=== PATIENT | female | born 1985 | race Caucasian/White ===

== ENCOUNTER 2018-01-05 14:45 | Outpatient (CLI) | payer OTHER, SELFPAY ==
[2017-12-12 15:55] VITALS: BP 137/79; BMI 37.3
[2018-01-05] MEDS: Betamethasone/Betamethasone 30 MG/5 ML Vial 12 MG IM (15:30)
[2018-01-05 16:09] LABS: Hematocrit 38.5 % (37-47); Hemoglobin 12.8 g/dl (12.0-15.0); Mean Corp Hgb Conc 33.2 g/gl (32-36); Mean Corpuscular Hgb 30.2 pg (27.0-32.0); Mean Corpuscular Volume 90.8 fL (81-99); Mean Platelet Vol. 10.3 fl (6.2-12.0); Platelet Count 258 K/mm3 (150-450); RBC Distribution Width CV 13.4 % (11.6-14.6); Red Blood Count 4.24 M/mm3 (4.2-5.4); Scan Indicated on CBC? Y/N NO
[2018-01-05 16:20] LABS: Prothrombin Time (Protime)PT. 12.9 SECONDS (11.7-14.9)
[2018-01-05 16:21] LABS: Partial Thromboplast Time 29.5 Seconds (24.1-36.2)
[2018-01-05 16:23] VITALS: BMI 38.5
[2018-01-05 16:38] LABS: AST(SGOT) 13 U/L (15-37); Alanine Aminotransfer ALT/SGPT 20 U/L (13-56); Creatinine, Serum 0.41 mg/dL (0.55-1.02); EST Glomerular Filtration Rate 193 mL/min (>60); Est Glom Filt Rate - Afr Amer 233 mL/min (>60); Estimated Creatinine Clearance 177.26 ml/min; Uric Acid 2.1 mg/dL (2.6-6.0)
[2018-01-05 16:47] LABS: Protein, Urine (Random) < 6.0 mg/dL (<11.9)
--- NOTE | 2018-01-08 20:15 | OB.TRI.NOTE ---
History of Present Illness Date of Service: 01/06/18 Was patient seen by the physician?: Yes Reason For Visit: R/O [facility] Date of Service: 01/06/18 History of Present Illness: 32 yo @ 27 weeks presents with viasual changes and black spots in the vision, and epigastric pain. she denies any vaginal bleeding or abnormal discharge, denies any headaches. she denies any history of preeclampsia Home Medications Medication Instructions Recorded 1 tab PO QDAY 11/14/17 vitamin,calcium,xmzmsmub-luqk-oeyna acid tablet Allergies tetracycline Allergy (Intermediate, Verified 12/12/17 15:55) throat swells - Pertinent Past Medical History Pertinent Past Medical History: anxiety and depression history of Physical Exam Vitals: Vital Signs BP 137/79 H 12/12/17 15:55 NST - FHR Rate Baby A Baseline: 145 Variability:: Moderate Accelerations:: 10 x 10 Decelerations:: None NST Reactive:: Yes, Appropriate for gestational age FHR Category:: Category I Uterine Activity:: no regular Impression/Plan rule out preeclampsia- visual changes. negative labs and normal bps. celestone given dc home
--- NOTE | 2018-01-08 20:19 | OB.TRI.HP_ITS ---
History of Present Illness Date of Service: 01/06/18 Was patient seen by the physician?: Yes Reason For Visit: R/O [facility] Date of Service: 01/06/18 History of Present Illness: 32 yo @ 27 weeks presents with viasual changes and black spots in the vision, and epigastric pain. she denies any vaginal bleeding or abnormal discharge, denies any headaches. she denies any history of preeclampsia Home Medications Medication Instructions Recorded 1 tab PO QDAY 11/14/17 vitamin,calcium,akycwpig-kswf-iclyk acid tablet Allergies tetracycline Allergy (Intermediate, Verified 12/12/17 15:55) throat swells - Pertinent Past Medical History Pertinent Past Medical History: anxiety and depression history of Physical Exam Vitals: Vital Signs BP 137/79 H 12/12/17 15:55 NST - FHR Rate Baby A Baseline: 145 Variability:: Moderate Accelerations:: 10 x 10 Decelerations:: None NST Reactive:: Yes, Appropriate for gestational age FHR Category:: Category I Uterine Activity:: no regular Impression/Plan rule out preeclampsia- visual changes. negative labs and normal bps. celestone given dc home
== END 2018-01-05 17:20 | disposition home or self-care (01) ==
LOC: WPOUT 14:58 → WP 15:00
PROVIDERS: Visit Provider Obstetrics & Gynecology
DX: O26.892 Other specified pregnancy related conditions, second trimester (principal); H53.8 Other visual disturbances; R10.13 Epigastric pain; Z3A.27 27 weeks gestation of pregnancy
CPT/HCPCS: 96372; 36415; 59050; 82565; 82570; 84156; 84450; 84460; 84550; 85027; 85610; 85730; 99218; A4216; G0378; J0702

== ENCOUNTER 2018-01-06 15:15 | Outpatient (CLI) | payer OTHER, SELFPAY ==
[2018-01-05 16:23] VITALS: BMI 38.5
[2018-01-06 15:41] VITALS: BMI 38.3
[2018-01-06] MEDS: Betamethasone/Betamethasone 30 MG/5 ML Vial 12 MG IM (15:57)
--- NOTE | 2018-01-08 20:19 | OB.TRI.NOTE ---
History of Present Illness Date of Service: 01/07/18 Was patient seen by the physician?: No Reason For Visit: CELESTONE SHOT Date of Service: 01/07/18 Home Medications Medication Instructions Recorded 1 tab PO QDAY 11/14/17 vitamin,calcium,mwtiudbl-txpt-mvisg acid tablet Allergies tetracycline Allergy (Intermediate, Verified 12/12/17 15:55) throat swells Impression/Plan celestone shot
== END 2018-01-06 15:47 | disposition home or self-care (01) ==
LOC: WPOUT 15:23 → WP 15:24
PROVIDERS: Visit Provider Obstetrics & Gynecology
DX: Z34.90 Encounter for supervision of normal pregnancy, unspecified, unspecified trimester (principal)
CPT/HCPCS: 96372; 99218; G0378; J0702

== ENCOUNTER → 2018-01-07 11:00 | Outpatient (CLI) | payer OTHER, SELFPAY ==
--- NOTE | 2018-01-07 11:06 | US_ITS ---
STUDY: SECOND AND THIRD TRIMESTER OBSTETRICAL ULTRASOUND REASON FOR EXAM: Female, 32 years old. Placenta previa LMP: TECHNIQUE: Transabdominal PRIOR ULTRASOUND: 11.12.17 FINDINGS: There is a single intrauterine fetus. The fetus is in a breech presentation. There is demonstrated cardiac activity with a heart rate of 140 bpm. There is a normal amniotic fluid volume. The largest amniotic fluid pocket measures 10.2 cm. The amniotic fluid index (ELY) is 14.9 cm. The placenta is posterior in location and is not low lying. The placenta is 2 cm from the cervical os. There are Grade 0 placental changes. The cervix measures 51 mm in length. The adnexal regions are not visualized. BIOMETRY: BPD: 66MM: 26 weeks, 4 days HC: 262MM: 28 weeks, 4 days AC: 227MM: 27 weeks, 1 days FL: 54MM: 28 weeks, 4 days CI: 70 FL/BPD: 82 FL/HC: FL/AC: 24 HC/AC: 1.15 age by current US: 27 weeks, 6 days. DOMINIK by current US: 5.6.18. Estimated weight: 1118 grams, +/- 163 grams, 50 %. Age by LMP: 27 weeks, 3 days. DOMINIK by LMP: 5.9.18. US/OB Limited With Biometrics IMPRESSION: The placenta is posterior in location and is not low lying. The placenta is 2 cm from the cervical os. There is a single live intrauterine with a heart rate of 140 bpm. age by current US: 27 weeks, 6 days. DOMINIK by current US: 5.6.18. Electronically Signed: Ubaldo Jon MD at 12:49 EST , Service support ,
== END ==
PROVIDERS: Visit Provider Obstetrics & Gynecology
DX: O44.00 Complete placenta previa NOS or without hemorrhage, unspecified trimester (principal); Z3A.00 Weeks of gestation of pregnancy not specified
CPT/HCPCS: 76816

== ENCOUNTER → 2018-01-10 15:58 | Outpatient (CLI) | payer OTHER, SELFPAY ==
[2018-01-10 17:40] LABS: Absolute Lymphocyte Count 2.78 X10^3/ul (0.83-4.51); Absolute Neutrophil Count 10.9 X10^3/uL (2.0-7.7); Basophil# 0.04 X10^3/uL; Basophil% 0.3 % (0-1); Eosinophil# 0.13 X10^3/uL; Eosinophils% 0.9 % (0-5); Hematocrit 37.9 % (37-47); Hemoglobin 12.8 g/dl (12.0-15.0); Lymphocyte # 2.78 X10^3/ul (4.0); Lymphocyte % 18.2 % (19-41); Mean Corp Hgb Conc 33.8 g/gl (32-36); Mean Corpuscular Hgb 30.5 pg (27.0-32.0); Mean Corpuscular Volume 90.5 fL (81-99); Mean Platelet Vol. 10.5 fl (6.2-12.0); Monocyte# 1.18 X10^3/uL; Monocyte% 7.7 % (0-10); Neutrophil # 10.91 X10^3/uL (2.7-7.7); Neutrophil % 71.4 % (47-70); Platelet Count 288 K/mm3 (150-450); RBC Distribution Width CV 13.2 % (11.6-14.6); RBC Distribution Width SD 42.6 fl (35.1-43.9); Red Blood Count 4.19 M/mm3 (4.2-5.4); White Blood Count 15.3 K/mm3 (4.4-11.0)
[2018-01-10 17:50] LABS: Glucose Challenge Gest 1H 50g 128 mg/dL (70-140)
[2018-01-10 17:55] LABS: POSITIVE COUNT NO; POSITIVE DIFFERENTIAL NO; POSITIVE MORPHOLOGY NO
== END ==
PROVIDERS: Visit Provider Obstetrics & Gynecology
DX: O09.92 Supervision of high risk pregnancy, unspecified, second trimester (principal)
CPT/HCPCS: 36415; 82950; 85025

== ENCOUNTER 2018-03-29 10:10 | Inpatient (IN) | payer OTHER, SELFPAY ==
[2018-03-28 15:09] VITALS: BMI 44.2
[2018-03-28 15:57] LABS: Absolute Lymphocyte Count 2.21 X10^3/ul (0.83-4.51); Absolute Neutrophil Count 7.6 X10^3/uL (2.0-7.7); Basophil# 0.01 X10^3/uL; Basophil% 0.1 % (0-1); Eosinophils% 0.9 % (0-5); Hematocrit 38.4 % (37-47); Hemoglobin 12.6 g/dl (12.0-15.0); Lymphocyte # 2.21 X10^3/ul (4.0); Lymphocyte % 20.3 % (19-41); Mean Corp Hgb Conc 32.8 g/gl (32-36); Mean Corpuscular Hgb 29.3 pg (27.0-32.0); Mean Corpuscular Volume 89.3 fL (81-99); Mean Platelet Vol. 10.4 fl (6.2-12.0); Monocyte% 8.3 % (0-10); Neutrophil # 7.62 X10^3/uL (2.7-7.7); Neutrophil % 70.1 % (47-70); POSITIVE COUNT NO; POSITIVE DIFFERENTIAL NO; POSITIVE MORPHOLOGY NO; Platelet Count 202 K/mm3 (150-450); RBC Distribution Width CV 13.7 % (11.6-14.6); RBC Distribution Width SD 44.4 fl (35.1-43.9); White Blood Count 10.9 K/mm3 (4.4-11.0)
[2018-03-29] VITALS (16 sets, daily range): BP systolic 107–141; BP diastolic 44–69; PULSE 60–84; RESP 16–18; TEMP 35.9–36.6; O2SAT 96–100
[2018-03-29] MEDS: Lactated Ringers 1,000 ML 999 ML IV (10:30)
[2018-03-29] MEDS: Lactated Ringers 1,000 ML 150 ML IV (11:27)
[2018-03-29] MEDS: Sodium Citrate/Citric Acid 30 ML UDC PO (11:31)
[2018-03-29] MEDS: Oxytocin 30 units/NS 500 ml 30 UNITS/500 ML IV.SOLN 167 UNITS IV (12:23)
[2018-03-29] MEDS: Ketorolac 30 MG/ML Syringe IV ×2 (12:50→18:21)
--- NOTE | 2018-03-29 12:59 | OP.PCM_ITS ---
Delivery Classification: Scheduled Final DOMINIK: 04/05/18 Gestational age: 39 Weeks and 0 Days Indications: 32yo with previous c/s declines TOLAC- planned for elective repeat c/s at 39wk gestation Indications for : Repeat Elective Description of Procedure: Surgeon: Dr. Tana Hardwick Head Of Data: TAMIKA John Head Of Data: Romi Darden MS3 Procedure performed: Repeat section Anesthesia: Spinal Preoperative diagnosis: Term gestation 39. weeks gestation for an elective repeat section Postoperative Diagnosis: same- live female infant Findings: Live male born without complication. clear amniotic fluid. Delayed cord clamping performed. Normal tubes and ovaries bilaterally. EBL: 800 cc Implantable devices: None Operative note: After informed consent was obtained the patient was taken to the operating room she was given spinal anesthesia. He was placed in the supine position. She was then prepped and draped in normal sterile fashion. Once spinal anesthesia was found to be adequate skin incision was made with a scalpel in a Pfannenstiel fashion. It was carried down to the underlying layer of the fascia. Fascia was then incised midline with scapel and extended laterally using curved maloen. 2 straight Washington's were placed in the superior aspect of the fascial edge and the rectus muscles were dissected off sharply. Attention was then turned to the inferior aspect where again the fascial edge was grasped with 2 straight Washington clamps tented up and the rectus muscle dissected off sharply. At this time the rectus muscles were in the midline bluntly. Using blunt force the peritoneum was then entered. At this time the vesicouterine peritoneum was identified. Metzenbaum scissors were used to create a bladder flap and then taken down digitally. Uterine incision was made in a low transverse fashion with the scalpel and then entered bluntly. Gentle opposing traction was placed to extend the uterine incision. The membranes were ruptured amniotic fluid clear. 's head was then brought to the uterine incision was delivered atraumatically followed by the rest infant's body. At this time delayed cord clamping was performed mouth nose were suctioned. Infant was then handed to the waiting nursery team. The placenta was then removed with gentle traction. The uterus was removed from the intra- abdominal cavity is wrapped in a moist lap. it was cleared of all clots and debris using a moist lap. Ring clamps were placed on the uterine angles. #1 Vicryl suture was used in a running locked fashion for the first layer. Followed by second imbricating layer with #1 Vicryl. At this time then the uterus was placed back into abdominal cavity uterine incision was evaluated and noted to be of good hemostasis. Tubes and ovaries were evaluated they were normal. Great hemostasis was appreciated at this time the uterine incision was again evaluated good hemostasis was appreciated. Ronen placed on uterine incision. The peritoneum was grasped with Kellys. Peritoneum was reapproximated using #2 Vicryl suture in a running fashion. The fascia was then reapproximated using #1 PDS in a running fashion. Subcutaneous layer was evaluated and Bovie was used for any small oozing that was noted per #2-0 plain gut suture was then used to reapproximate the subcutaneous layer 4-0 monocryl was used to reapproximate the skin in a subcutaneous fashion. Dry sterile dressing was applied. Instrument lap needle count were correct ?2. Anticipated normal postoperative course for this patient. Amniotic Membrane Rupture Type: Artificial Amniotic Fluid Description: Clear Placenta Disposition: [facility] Drain: Jolley to straight drain Cord Entanglement: None Nuchal Cord Compression: Without compression Cord Vessel Description: 3 Vessels Esitmated Blood Loss (ml): 800 Infant Gender: Female (1 minute): 9 (5 minute): 9 Delayed cord clamping: Yes Pre-op Antibiotic Given: - - ancef 3g Pt instructed on risks of surgery: Bleeding, Anesthesia Risks, Infection, Injury to surrounding structure(s) including bowel and bladder Complications: None - Admit VTE Documentation VTE Present on Admission: Yes VTE Mechan Device Prophylaxis: SCD's VTE Pharm Prophylaxis ordered?: No
[2018-03-29] MEDS: Lactated Ringers 1,000 ML 100 ML IV ×2 (13:15→15:50)
--- NOTE | 2018-03-29 13:49 | CPS ---
nursing to start
[2018-03-30] VITALS (7 sets, daily range): BP systolic 94–116; BP diastolic 49–60; PULSE 63–74; RESP 16–18; TEMP 35.9–36.8; O2SAT 96–99
[2018-03-30] MEDS: 0.9% Saline Lock 10 ML Syringe IV ×3 (00:48→18:48)
[2018-03-30] MEDS: Ketorolac 30 MG/ML Syringe IV ×3 (00:48→14:27)
[2018-03-30 06:46] LABS: Hematocrit 35.6 % (37-47); Hemoglobin 11.7 g/dl (12.0-15.0); Mean Corp Hgb Conc 32.9 g/gl (32-36); Mean Corpuscular Hgb 29.3 pg (27.0-32.0); Mean Corpuscular Volume 89.2 fL (81-99); Mean Platelet Vol. 10.3 fl (6.2-12.0); Platelet Count 204 K/mm3 (150-450); RBC Distribution Width CV 13.5 % (11.6-14.6); RBC Distribution Width SD 44.3 fl (35.1-43.9); Red Blood Count 3.99 M/mm3 (4.2-5.4); White Blood Count 16.8 K/mm3 (4.4-11.0)
[2018-03-30 06:56] LABS: Scan Indicated on CBC? Y/N NO
--- NOTE | 2018-03-30 10:26 | PCM.PN.OB ---
Subjective: pt seen at bedside, doing well. pt reports good pain control. lochia mild. Passing flatus, Voiding w/o difficulty. breast feeding. - Physical Exam General: Alert, Oriented x3 Abdomen: Soft, Non-Distended, - - fundus firm - incision dressing dry and intact Extremities: No Calf Tenderness Vital Signs Temp Pulse Resp BP Pulse Ox 98.2 F 70 16 104/49 L 99 03/30/18 10:07 03/30/18 10:07 03/30/18 10:07 03/30/18 10:07 03/30/18 10:07 Oxygen Delivery Method Room Air Weight: 120.7 kg Body Mass Index (BMI) 44.2 Intake and Output for Last 24 Hours 03/28/18 03/29/18 03/30/18 23:59 23:59 23:59 Intake Total 604 / 604 Output Total 1550 / 1550 1300 / 1300 Balance -946 / -946 -1300 / -1300 Laboratory Tests Past 24 Hrs 03/30/18 06:30 WBC 16.8 H RBC 3.99 L Hgb 11.7 L Hct 35.6 L MCV 89.2 MCH 29.3 MCHC 32.9 RDW 13.5 RDW Differential 44.3 H Plt Count 204 MPV 10.3 Medical Necessity - Tobacco Use Smoking Status: Never smoker Assessment/Plan POD#1 s/p repeat c/s doing well 1) routine care 2) ambulation 3) pain mgmt
--- NOTE | 2018-03-30 10:32 | DCINST_ITS ---
Discharge Diet: No Restrictions Discharge Activity: Return to Normal Activity, May Not Drive - for 2 weeks, May not drive while taking narcotic pain medications., May Shower, May Take a Tub Bath - in 7 days. May resume sexual activity in: 4-6 weeks Lifting Restrictions: 20 pounds Additional Activity Instructions:: Nothing in the vagina for 4-6 weeks. You may return to work/school in 6 weeks. Call your doctor if your incision/area has: Continuous Slow Oozing, Sudden Increased Bleeding, Increased Pain/ Swelling, Increased Redness, Foul Smelling Discharge Call your doctor if you observe: Fever of 101 or Higher, Using more than one pad per hour - for 2 hours Suture Line Care: Avoid Pulling/Pushing, Avoid Pinching/Bending Cleanse incision/area with: Keep Dressing Clean & Dry Additional Instructions: If you experience any of the following, contact your healthcare provider. * Bleeding that soaks a pad every hour for 2 hours * Fever 100.4 or higher * Unrelieved incision or abdominal pain * Swelling, redness, discharge or bleeding from your incision or episiotomy site * Your incision begins to separate * Problems urinating (including inability to urinate or burning while urinating) . * Visual changes * Severe headache * Flu-like symptoms * Pain or redness in one of both of your breasts * Pain, warmth, tenderness or swelling in your legs, especially the calf area * Frequent nausea and vomiting * Symptoms of depression or anxiety If you experience any of the following, call 911 or go to the nearest Emergency Room. * Chest pain * Problems breathing * Seizure activity * Partial or complete paralysis of a body part, slurred speech, weakness or drooping of the face, or a sudden inability to walk or hold your balance Allergies/Adverse Reactions: Allergies tetracycline Allergy (Intermediate, Verified 03/28/18 15:10) throat swells Medications to take at Discharge vitamin,calcium,gfegryor-eacu-kezan acid tablet 1 tab PO QDAY 11/14/17 Ibuprofen [Motrin] 800 mg PO TID PRN PRN #30 tab 03/30/18 Oxycodone HCl/Acetaminophen [Percocet 5/325] 1 tablet PO Q6H PRN PRN 7 Days #28 tablet 03/30/18 Senna/Docusate Sodium [Senokot-S] 1 - 2 tab PO DAILY PRN #30 tab 03/30/18 SimETHICONE [Mylicon] 80 mg PO PCHS PRN #30 tab 03/30/18 The following prescriptions were given: Oxycodone HCl/Acetaminophen [Percocet 5/325] 1 tablet PO Q6H PRN PRN 7 Days #28 tablet PRN Reason: Pain Ibuprofen [Motrin] 800 mg PO TID PRN PRN #30 tab PRN Reason: Pain Senna/Docusate Sodium [Senokot-S] 1 - 2 tab PO DAILY PRN #30 tab PRN Reason: Constipation SimETHICONE [Mylicon] 80 mg PO PCHS PRN #30 tab PRN Reason: Indigestion/stomach pain Follow-Up: Call to make an appointment with your doctor for an incision check in 1-2 weeks. You will also need a 6 week post- follow up appointment. Please Follow Up With: Tana Hardwick MD - Call to make an appointment for an incision check in 1-2 [phone] When: You will need a post- check in 6 weeks. Primary Care Physician: [facility] ,Out of [Primary Care Provider] -
[2018-03-30] MEDS: Ondansetron 4 MG/2 ML Vial IV (18:48)
--- NOTE | 2018-03-30 18:55 | NURSING ---
while giving pt iv zofran her iv infiltrated. partial dose of zofran flushed down the sink.
[2018-03-30] MEDS: Acetaminophen 500 MG Tablet 1000 MG PO (20:08)
[2018-03-30] MEDS: Senna/Docusate Sodium 1 Tablet PO (20:09)
[2018-03-30] MEDS: Ibuprofen 600 MG Tablet PO (21:04)
[2018-03-31 02:25] VITALS: BP 106/43; PULSE 69; RESP 16; TEMP 36.6; O2SAT 97
[2018-03-31] MEDS: Ibuprofen 600 MG Tablet PO ×2 (03:37→11:34)
--- NOTE | 2018-03-31 07:53 | PCM.PN.OB ---
Subjective: pt seen at bedside, doing well. pt reports good pain control. Lochia mild. Breast feeding. Denies CP, SOB, dizziness. - Physical Exam General: Alert, Oriented x3 Abdomen: Soft, Non-Distended Vital Signs Temp Pulse Resp BP Pulse Ox 97.9 F 69 16 106/43 L 97 03/31/18 02:25 03/31/18 02:25 03/31/18 02:25 03/31/18 02:25 03/31/18 02:25 Oxygen Delivery Method Room Air Weight: 120.7 kg Body Mass Index (BMI) 44.2 Intake and Output for Last 24 Hours 03/29/18 03/30/18 03/31/18 23:59 23:59 23:59 Intake Total 604 / 604 Output Total 1550 / 1550 1800 / 1800 Balance -946 / -946 -1800 / -1800 Medical Necessity - Tobacco Use Smoking Status: Never smoker Assessment/Plan POD#2, doing well routine care remove dressing prior to dc home ambulation pain mgmt will decide on Dc home after baby evaluated today.
[2018-03-31 08:33] VITALS: BP 114/63; PULSE 72; RESP 22; TEMP 36.4
[2018-03-31] MEDS: Senna/Docusate Sodium 1 Tablet PO (09:11)
[2018-03-31 13:38] VITALS: BP 108/59; PULSE 72; RESP 20; TEMP 36.1
== END 2018-03-31 13:30 | disposition home or self-care (01) | DRG 766 ==
PROVIDERS: Admitting Provider Obstetrics & Gynecology; Visit Provider Obstetrics & Gynecology
PROC: 10D00Z1 Extraction of Products of Conception, Low, Open Approach (ICD-10-PCS; CPT 59514; principal; 2018-03-29 11:45)
DX: O69.81X0 Labor and delivery complicated by cord around neck, without compression, not applicable or unspecified (principal); Z3A.39 39 weeks gestation of pregnancy; Z37.0 Single live birth; O34.211 Maternal care for low transverse scar from previous cesarean delivery
CPT/HCPCS: 85025; 85027; 86850; 86900; 99218; J7120; A4216; G0378; J2405

== ENCOUNTER 2018-04-05 10:57 | Outpatient (CLI) | payer OTHER, SELFPAY | END 2018-04-05 12:00 | disposition home or self-care (01) | LOC: WPOUT 11:04 → WP 11:04 | PROVIDERS: Visit Provider Obstetrics & Gynecology | DX: O92.79 Other disorders of lactation (principal) | CPT/HCPCS: 96152 ==

== ENCOUNTER 2023-04-01 05:34 | Day surgery (SDC) | payer OTHER, SELFPAY ==
--- NOTE | 2023-03-29 16:03 | PCM.HP.BLA ---
History and Physical Date of Admission: 04/01/23 Pre-Op History and Physical ? HPI: The patient is a 37 year old female presenting for pre-operative visit. She is scheduled for TLH, B/l salpingectomy, Cystoscopy, AUB, pelvic pain suspect adenomyosis, dyspareunia, uterine prolapse on 04/01/23. Procedure discussed along with risks, benefits and complications. Other alternatives discussed for management. Consent form signed? Yes. ? ? PAST MEDICAL HISTORY PAST MEDICAL HISTORY Diagnosis Date ? Back pain ? ? DEPRESSION ? ? Irritable bowel ? ? s/p colonoscopy - 2005 ? Varicosities ? ? 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 ? PAST SURGICAL HISTORY PAST SURGICAL HISTORY Procedure Laterality Date ? DELIVERY ONLY ? 01/13/2013 ? , low transverse ? DELIVERY ONLY ? 03/29/2018 ? COLONOSCOPY ? ? ? COLONOSCOPY FLX DX W/COLLJ SPEC WHEN PFRMD ? 09/2016 ? Colonoscopy ? ESOPHAGOGASTRODUODENOSCOPY TRANSORAL DIAGNOSTIC ? 09/2016 ? EGD ? FOOT SURGERY HX Right 10/2019 ? TONSILLECTOMY HX ? CURRENT MEDICATIONS Current Outpatient Medications Medication Sig Dispense Refill ? naratriptan (AMERGE) 2.5 mg tablet ? clotrimazole-betamethasone (LOTRISONE) cream Apply 1 application to affected area twice daily. 30 g 1 ? armodafinil (NUVIGIL) 250 mg tab 1 tab(s) ? ? ? buPROPion XL (WELLBUTRIN XL) 300 mg 24 hr tablet ? naltrexone (TREXAN) 50 mg tablet ? SUMAtriptan (IMITREX) 100 mg tablet 1 tab(s) ? ? ? Desogestrel-Ethinyl Estradiol (ENSKYCE) 0.15-0.03 mg per tablet Take 1 tablet by mouth once daily. 112 tablet 3 ? buPROPion (WELLBUTRIN) 100 mg tablet 1 TAB(S) ORALLY 2 TIMES A DAY 30 DAY(S) ? ? ? No current facility-administered medications for this visit. ? ? ALLERGIES: Tetracycline and Environmental [Other] ? PERSONAL HISTORY: SOCIAL HISTORY Social History ? Tobacco Use ? Smoking status: Never ? Smokeless tobacco: Never Vaping Use ? Vaping Use: Never used Substance Use Topics ? Alcohol use: Yes ? ? Comment: Occasionally, not while ? Drug use: No ? FAMILY HISTORY: FAMILY HISTORY FAMILY HISTORY Problem Relation Age of Onset ? Thyroid Father ? ? Seizures Brother ? ? other (Colitis) Brother ? ? Stroke Paternal Grandmother ? ? Heart Paternal Grandfather ? ? Breast Cancer Maternal Grandmother 90 ? other (Dementia) Maternal Grandmother ? ? Cancer Maternal Grandfather ? ? melanoma ? Cancer Paternal Aunt ? ? skin cancer ? ? REVIEW OF SYMPTOMS: negative except as noted above PHYSICAL EXAMINATION: ? VITALS: Blood pressure 124/80, weight 224 lb (101.6 kg), last menstrual period 10/19/2020. ? GENERAL: The patient is well nourished, well hydrated in no acute distress. , The patient is oriented to time, place, and person. NECK: full range of motion LUNGS: Clear to auscultation bilaterally. no wheezes, rhonchi or rales HEART: Regular rate and rhythm, Normal heart sounds, and No murmurs or gallops ? ? IMPRESSION: 37yo with suspected Adenomyosis, AUB, dyspareunia, pelvic pain , uterine prolapse (narrow pelvis) ? PLAN: TLH, Bilateral salpingectomy, Cystoscopy ? Pt has been counseled on risks/benefits and alternatives of surgery including but not limited to anesthesia, bleeding, infection, injury to pelvic structures including bowel, bladder, ureters and vessels. Pt wishes to proceed with surgery at this time. Possible need for transfusion reviewed. Risk for fistula formation reviewed. ? Pre and post op instructions reviewed ? I have reviewed and updated past medical and surgical history, medications and allergies Tana Calderón MD ?4:40 PM Office Visit on 03/25/2023 Office Visit on 03/25/2023 Note shared with patient
[2023-04-01] VITALS (9 sets, daily range): BP systolic 97–118; BP diastolic 53–78; PULSE 59–83; RESP 16–20; TEMP 36.3–36.8; O2SAT 97–100; BMI 36.6
[2023-04-01 06:32] LABS: Hemoglobin 13.6 g/dL (12.0-15.0); Mean Corp Hgb Conc 33.2 g/dL (32-36); Mean Corpuscular Hgb 28.8 pg (27.0-32.0); Mean Corpuscular Volume 86.7 fL (81-99); Mean Platelet Vol. 9.6 fl (6.2-12.0); Platelet Count 337 K/mm3 (150-450); Red Blood Count 4.73 M/mm3 (4.2-5.4); White Blood Count 7.5 K/mm3 (4.4-11.0)
[2023-04-01 06:41] LABS: Magnesium 2.3 mg/dL (1.6-2.6)
[2023-04-01 06:43] LABS: Internal QC Validated? YES +Cl - CLEAR BKGD; Pregnancy, Urine Negative Negative
[2023-04-01] MEDS: Lactated Ringers 1,000 ML 40 ML IV (06:47)
[2023-04-01] MEDS: Acetaminophen 500 MG Tablet 1000 MG PO (06:48)
[2023-04-01] MEDS: Phenazopyridine 95 MG Tablet 190 MG PO (06:48)
[2023-04-01] MEDS: Gabapentin 600 MG Tablet PO (06:49)
[2023-04-01] MEDS: Celecoxib 200 MG Capsule 400 MG PO (06:49)
[2023-04-01] MEDS: Scopolamine 1mg/72hr Patch 1 PATCH TD (06:50)
[2023-04-01] MEDS: Enoxaparin 40 MG/0.4 ML Syringe SC (06:52)
[2023-04-01] MEDS: Magnesium 1 GM over 15 mins IV (07:12)
--- NOTE | 2023-04-01 07:27 | DCINST_ITS ---
Discharge Instructions Diet Discharge Diet: No restrictions Activity Discharge Activity: May Not Drive (while taking narcotics. may drive when pain controlled. ) and May Shower Return to work on:: 06/18/21 May shower in (days): 1 May resume sexual activity in: 6-8 weeks Weight Bearing Status: Full weight bearing Lifting Restrictions: 20 Additional Activity Instructions:: NOTHING IN THE VAGINA x 6-8 weeks. Dressing / Incision Call your doctor if your incision/area has: Continuous Slow Oozing, Sudden Increased Bleeding, Increased Pain/ Swelling, Increased Redness, Foul Smelling Discharge and Swelling at the incision site Call your doctor if you observe: Fever of 101 or Higher, Inability to have a bowel movement, Using more than 1 pad per hour and Uncontrolled pain Change Dressing in: leave in place till F/U (you have skin glue over incision sites- do not pick off) Cleanse incision/area with: Soap & Water, Keep Dressing Clean & Dry and - (you may let soap and water run over incision sites and dab dry. ) Follow Up Care Please Follow Up With: Tana Hardwick MD When: 2 weeks as scheduled for post op visit Test Results: Test results from this visit will be discussed in further detail at your follow- up appointment, if applicable. Discharge Plan Admission Attending Provider: Tana Hardwick Primary Care Provider: ISAIAS YANCEY Discharge Orders/Prescriptions Prescriptions: No Action ibuprofen 800 MG tablet 800 mg PO TID PRN PRN (Reason: Pain) Qty: 30 0RF desogestrel-ethinyl estradiol [Enskyce] 0.15-0.03 mg Tablet 1 tab PO DAILY promethazine 12.5 mg Tablet 12.5 mg PO Q6H PRN (Reason: MIGRAINES) naltrexone 50 mg Tablet 50 mg PO DAILY naratriptan 2.5 mg Tablet 2.5 mg PO Q4H PRN (Reason: MIGRAINES) Rx Instructions: do not exceed 2 doses per 24 hrs bupropion HCl [Wellbutrin XL] 300 mg Tablet Extended Release 24 Hr 300 mg PO DAILY armodafinil 250 mg Tablet 250 mg PO DAILY docusate sodium [Doculax] 100 mg Capsule 100 mg PO PRN PRN (Reason: CONSTIPATION) Referrals / Follow Up: NAYE,ISAIAS [Other] Disposition Disposition (needs filled in before D/C Order can be placed): Home, Self Care
[2023-04-01] MEDS: Lubricating Jelly 60 GM Tube 30 GM (07:30)
[2023-04-01] MEDS: Cefazolin 2 GM in 0.9% Normal Saline 100 ML IV (07:30)
--- NOTE | 2023-04-01 07:30 | HYST_PTH ---
PATIENT: SRI DAILEY LOC: [facility] U#:[id number] AGE/SX: 37/F ROOM: RE04/01/[address]: Dr. Tana Hardwick, MDDOB: 1985 BED: DIS: 04/01/2023 SPEC #: [id number] RECD: 04/01/23 11:27 STATUS: CRISPIN ORACIO #: [id number] HEIDI: 04/01/23 07:[address]: Tana Hardwick DEPT: SURGICAL PATHOLOGY RECD BY: Gianna Flores Tissues: Uterus, NOS Procedures: Surgery Specimen Level V HEADER OPERATION: ERAS, total laparoscopic hysterectomy, salpingectomy, cysto PRE-OP DIAGNOSIS: Suspected adenomyosis, abnormal uterine bleeding, dyspareunia, pelvic pain, uterine prolapse (narrow pelvis) TISSUE SUBMITTED: Cervix, uterus and bilateral fallopian tubes MICROSCOPIC DIAGNOSIS Uterus, hysterectomy: Cervix - nabothian cyst and mild chronic inflammation. Endometrium - weakly proliferative endometrium with focal cystic change. Myometrium - focal superficial adenomyosis. Fallopian tubes - benign paratubal cysts. AM:michaelle 04/04/2023 MICROSCOPIC DESCRIPTION Slides are reviewed. GROSS DESCRIPTION Received in fixative is one container labeled with the patient's name and designated uterus. The specimen consists of a uterus with attached cervix and two detached fallopian tubes. The uterus with cervix measures 9.0 x 6.0 x 4.0 cm and weighs 86.9 gm. The ectocervix is grossly unremarkable. The endocervical canal measures 3.5 cm in length and is grossly unremarkable. The triangular endometrial cavity measures 3.8 x 3.2 cm. The velvety, light elizalde endometrium measures up to 0.2 cm in thickness. The myometrium measures 2.0 cm in average thickness and is free of mass lesions. The two fallopian tubes are similar in appearance with normal fimbrial ends averaging 5.0 cm in length and 0.5 cm in average diameter. One fallopian tube contains a smooth, glistening cyst measuring 7.0 cm in greatest dimension and containing clear fluid in its mid portion. Senior Officer sections are submitted follows: 1??anterior cervix, 2 - posterior cervix, 3 & 4 - anterior myometrial wall, 5 & 6 - posterior myometrial wall, 7??one fallopian tube, 8 - the other fallopian tube with paratubal cyst. / AM:michaelle 04/01/2023 TC:5 CPT: 74075
[2023-04-01 07:35] LABS: Bedside Glucose 89 mg/dL (74-106)
[2023-04-01] MEDS: Bupivacaine 0.25% 30 ML Vial (07:57)
[2023-04-01] MEDS: dexAMETHasone 4 MG/ML Vial 8 MG IV (08:45)
[2023-04-01] MEDS: Ondansetron 4 MG/2 ML Vial IM (09:13)
--- NOTE | 2023-04-01 09:18 | PCM.OPRPT ---
Report of Operation Date of Procedure: 04/01/23 Pre-Operative Diagnosis: AUB, dyspareunia, Suspect adenomyosis, Uterine prolapse, dysmenorrhea, narrow pelvis Post-Operative Diagnosis: same Surgery/Procedure Performed:: TLH, bilateral salpingectomy, cystoscopy Description of Surgical Findings:: normal tubes and ovaries bilaterally Surgeon: Tana Hardwick stile ripsaw operator: Loren Walters Type of Anesthesia: General and Local Special Medications: .25 marcaine Specimen's removed: uterus, cervix, bilateral fallopian tubes Drains: none Estimated Blood Loss (mL): 50 Fluids Replaced: 1400cc Description of Procedure: Patient take to OR and prepped and draped in usual sterile fashion in dorsal lithotomy position with her arms tucked in a neurologically safe and neutral position. The uterus sounded to 7.5 cm. The petrology teacher uterine manipulator was sutured into place at 12 position and vilchis were placed. Attention was turned to the abdomen. All port sites were infiltrated with .25%marcaine before the incisions were made. The anterior abdominal wall was tented up with towel clamps and using a direct entry approach a 5 mm infraumbilical port was placed. Intraperitoneal placement was confirmed with the laparoscope and the pneumoperitoneum was created. The patient was placed in Trendelenburg and 5 mm right and left lower quadrant ports were placed under direct visualization. Air seal rapid insufflator was used. The bowel was swept away. Ovaries appeared normal. The mesosalpinx starting at fimbriated end were grasped, clamped, sealed and transected with the Ligasure. The round ligaments were divided. The anterior peritoneum was dissected down to create the bladder flap with blunt dissection and the LigaSure. The uterine arteries were isolated, clamped, sealed and cut. There was minimal back bleeding from the uterus. Straight bites on uterine artieries performed to drop them off the cuff. The manipulator was used as guide to create colpotomy using monopolar tip L hook once specimen was removed attention was turned to vaginal portion. The specimen was handed off. The cuff was closed with interrupted 0-vicryl figure of 8 sutures. Cystoscopy was performed bilateral ureters were visualized with good efflux. bladder was intact. vilchis replaced and sponge stick placed in vagina. The pneumoperitoneum was recreated and the cuff and pedicles were hemostatic. Ronen was placed over cuff and pedicles. The skin incisions were closed with skin glue and 3-0 monocryl in the LLQ port site. The vaginal sweep was completed by me. Grafts/Implants Used: none Church Administrator- Dr. Walters Assisted with manipulation of camera, uterus and retraction. Grafts/Implants Used: none Procedure Start Time: 07:57 Procedure Stop Time: 09:15 Complications none Admit VTE Documentation VTE Present on Admission: Yes VTE Mechan Device Prophylaxis: SCD's VTE Pharm Prophylaxis ordered?: Yes
[2023-04-01] MEDS: Ondansetron 4 MG/2 ML Vial IV (09:28)
[2023-04-01] MEDS: Lactated Ringers @ 70 MLS/HR 70 ML IV (09:59)
[2023-04-01 11:43] LABS: Absolute Lymphocyte Count 0.96 X10^3/uL (0.83-4.51); Absolute Neutrophil Count 12.8 X10^3/uL (2.0-7.7); Basophil# 0.03 X10^3/uL; Basophil% 0.2 % (0-1); Hematocrit 41.8 % (37-47); Hemoglobin 13.5 g/dL (12.0-15.0); Lymphocyte # 0.96 X10^3/ul (0.83-4.51); Lymphocyte % 6.8 % (19-41); Mean Corp Hgb Conc 32.3 g/dL (32-36); Mean Corpuscular Hgb 28.7 pg (27.0-32.0); Mean Corpuscular Volume 88.9 fL (81-99); Mean Platelet Vol. 9.6 fl (6.2-12.0); Monocyte# 0.18 X10^3/uL; Monocyte% 1.3 % (0-10); NRBC Flagged by Analyzer 0 % (0-5); Neutrophil # 12.82 X10^3/uL (2.7-7.7); Neutrophil % 91.1 % (47-70); Platelet Count 320 K/mm3 (150-450); RBC Distribution Width CV 11.9 % (11.6-14.6); RBC Distribution Width SD 38.7 fl (35.1-43.9); White Blood Count 14.1 K/mm3 (4.4-11.0)
[2023-04-01] MEDS: HYDROcodone Bitartrate/Apap 5/325 Tablet PO (11:58)
== END 2023-04-01 13:14 | disposition home or self-care (01) ==
LOC: SDC 05:39 → AC 05:42
PROVIDERS: Anesthesiology; Referring Provider Obstetrics & Gynecology; Visit Provider Obstetrics & Gynecology
PROC: 0UT94ZZ Resection of Uterus, Percutaneous Endoscopic Approach (ICD-10-PCS; CPT 58571; principal; 2023-04-01 07:10)
DX: N80.03 Adenomyosis of the uterus (principal); N81.4 Uterovaginal prolapse, unspecified; N88.8 Other specified noninflammatory disorders of cervix uteri; N83.8 Other noninflammatory disorders of ovary, fallopian tube and broad ligament; G47.419 Narcolepsy without cataplexy; Z79.899 Other long term (current) drug therapy
CPT/HCPCS: 58571; 00840; 81025; 82962; 83735; 85025; 85027; 86850; 86900; 86901; 88307; J7120; J2405; J3475